=== PATIENT | female | born 1985 | race Caucasian/White ===

== ENCOUNTER 2017-09-22 02:23 | Emergency (ER) | payer SELFPAY ==
[~2017-09-22] VITALS: Ht 165.1 cm; Wt 62.3 kg
[~2017-09-22 02:23] MED LIST: ALBU1AER INH; ZITH250T PO
[2017-09-22 02:32] VITALS: BP 123/63; PULSE 77; RESP 18; TEMP 98.3; O2SAT 97
--- NOTE | 2017-09-22 02:42 | PD ---
HPI Chief Complaint: Edema Time Seen by Provider: 02:41 Travel History International Travel<30 days: No Contact w/Intl Traveler<30days: No Traveled to known affect area: No History of Present Illness HPI 32 year-old female presents to the emergency department for complaint of ring stuck on her right index finger. Patient states the band became bent in some fashion she is not sure how this happened. Patient has noted swelling of the right index finger 2 hours. The patient rates her pain 8/10 in intensity. PFSH Past Medical History Narrative Medical chronic pain syndrome, no surgery, tobacco use alcohol use, nursing notes reviewed Musculoskeletal: Yes (BACK, DISC DISEASE (BULGING DISC, L4-L5)) ?: Not : 2 : 1 Social History Alcohol Use: Yes (OCCASSIONALLY) Tobacco Use: Yes Substance Use: No Allergies-Medications (Allergen,Severity, Reaction): Coded Allergies: Sulfa (Sulfonamide Antibiotics) (Unverified Allergy, Severe, Anaphylaxis, 09/22/17) penicillin G (Unverified Allergy, Severe, Anaphylaxis, 09/22/17) Reported Meds & Prescriptions Reported Meds & Active Scripts Active No Active Prescriptions or Reported Medications Physical Exam Narrative Gen.: Well-developed well-nourished female in no acute distress no respiratory distress Extremity attention right index finger with readings in place and soft tissue swelling consistent with consistent strict of injury to the digit capillary refill is brisk and less than 2 seconds edema interferes with range of motion but is otherwise intact. Data Data Last Documented VS Vital Signs Date Time Temp Pulse Resp B/P (MAP) Pulse Ox O2 Delivery O2 Flow Rate FiO2 09/22/17 03:13 100 09/22/17 02:32 98.3 77 18 Orders Orders Ed Discharge Order (09/22/17 03:05) MDM Medical Decision Making Medical Screen Exam Complete: Yes Emergency Medical Condition: Yes Medical Record Reviewed: Yes Differential Diagnosis Finger ischemia, neurovascular injury, tendon injury, constrictive injury finger Narrative Course Ring removal Diagnosis Primary Impression: Constrictive jewelry of finger Qualified Codes: S60.449A - External constriction of unspecified finger, initial encounter; W49.04XA - Ring or other jewelry causing external constriction, initial encounter Referrals: Primary Care Physician call for appointment Patient Instructions: General Instructions Scripts No Active Prescriptions or Reported Meds Disposition: 01 DISCHARGE HOME Condition: Stable Denise Fink MD Sep 22, 2017 02:42
== END 2017-09-22 03:13 | disposition home or self-care (01) ==
LOC: PHEFT 02:23
DX: S60.440A External constriction of right index finger, initial encounter (principal); W49.04XA Ring or other jewelry causing external constriction, initial encounter
CPT/HCPCS: 99282

== ENCOUNTER 2018-01-06 01:26 | Emergency (ER) | payer SELFPAY ==
[2018-01-06] MEDS ORDERED: LIDOCAINE 1%/EPINEPHrine 1:100,000 SOLN 30 ML VIAL ONE (01:32)
[2018-01-06 01:35] VITALS: O2SAT 98
[2018-01-06] MEDS ORDERED: KETOROLAC TROMETHAMINE 30 MG/ML (IVP) VIAL ONE (01:45)
[2018-01-06] MEDS ORDERED: KETOROLAC TROMETHAMINE 30 MG/ML (IVP) VIAL IV PUSH ONE (01:45)
[2018-01-06] MEDS ORDERED: HYDROmorphone HCL PF 2 MG/ML VIAL IV PUSH ONE (01:45)
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
[2018-01-06 02:12] VITALS: BP 123/57; PULSE 116; RESP 16; O2SAT 99
[2018-01-06] MEDS ORDERED: LORazepam 2 MG/ML VIAL ONE (02:19)
[2018-01-06 02:30] VITALS: BP 109/58; PULSE 150; RESP 16; O2SAT 99
[2018-01-06] MEDS ORDERED: LORazepam 2 MG/ML VIAL IV PUSH ONE ×2 (02:30→03:00)
[2018-01-06] MEDS ORDERED: LIDOCAINE 1%/EPINEPHrine 1:100,000 SOLN 20 ML VIAL INFIL ONE (02:30)
[2018-01-06 03:00] VITALS: BP 105/58; PULSE 144; RESP 16; O2SAT 97
[2018-01-06] MEDS ORDERED: SODIUM CHLORIDE 0.9% FLUSH 10 ML FLUSH IV FLUSH PRN (04:00)
[2018-01-06 04:21] LABS: AUTOMATED NEUTROPHIL # 7.4 TH/MM3 (1.8-7.7); BASOPHIL # 0.1 TH/MM3 (0-0.2); BASOPHIL % 0.7 % (0.0-2.0); EOSINOPHIL # 0.3 TH/MM3 (0-0.4); EOSINOPHIL % 1.9 % (0.0-4.0); HEMATOCRIT 42.3 % (35.0-46.0); HEMOGLOBIN 14.8 GM/DL (11.6-15.3); LYMPH % 38.5 % (9.0-44.0); LYMPHOCYTE # 5.4 TH/MM3 (1.0-4.8); MEAN CELL VOLUME 96.2 FL (80.0-100.0); MEAN CORPUSCULAR HEMOGLOBIN 33.6 PG (27.0-34.0); MEAN PLATELET VOLUME 8.8 FL (7.0-11.0); MONO % 5.8 % (0.0-8.0); MONOCYTE # 0.8 TH/MM3 (0-0.9); NEUT % 53.1 % (16.0-70.0); PLATELET COUNT 233 TH/MM3 (150-450); RED CELL DISTRIBUTION WIDTH 13.1 % (11.6-17.2)
[2018-01-06 04:22] LABS: BASOPHILS 1 % (0-2); MONOCYTES 4 % (0-8); NEUTROPHIL # MANUAL DIFF 8.8 TH/MM3 (1.8-7.7); POLYS (SEG NEUTROPHILS) 63 % (16-70)
[2018-01-06 04:23] LABS: LYMPHOCYTES 31 % (9-44)
[2018-01-06 04:40] LABS: ALBUMIN 4.2 GM/DL (3.4-5.0); ALKALINE PHOSPHATASE 88 U/L (45-117); ALT (GPT) 23 U/L (10-53); AST (GOT) 17 U/L (15-37); BICARBONATE 19.6 MEQ/L (21.0-32.0); BLOOD UREA NITROGEN 11 MG/DL (7-18); CALCIUM 8.5 MG/DL (8.5-10.1); CHLORIDE 110 MEQ/L (98-107); CREATININE 0.83 MG/DL (0.50-1.00); GLOMERULAR FILTRATION RATE 81 ML/MIN (>89); GLUCOSE,RANDOM 105 MG/DL (74-106); SODIUM (NA) 143 MEQ/L (136-145); TOTAL BILIRUBIN ADULT 0.2 MG/DL (0.2-1.0); TOTAL PROTEIN 7.5 GM/DL (6.4-8.2)
[2018-01-06 04:42] LABS: ACETAMINOPHEN LESS THAN 2.0 MCG/ML (10.0-30.0)
[2018-01-06] MEDS: SODIUM CHLOR 0.9% 1000 ML INJ 1,000 ML IV SCH ×2 (05:39→06:32)
[2018-01-06 06:48] LABS: HEMATOCRIT 35.1 % (35.0-46.0); HEMOGLOBIN 12.1 GM/DL (11.6-15.3); MEAN CELL VOLUME 97.6 FL (80.0-100.0); MEAN CORPUSCULAR HEMOGLOBIN 33.5 PG (27.0-34.0); MEAN CORPUSCULAR HGB CONC 34.4 % (32.0-36.0); MEAN PLATELET VOLUME 9.1 FL (7.0-11.0); PLATELET COUNT 186 TH/MM3 (150-450); WHITE BLOOD COUNT 12.7 TH/MM3 (4.0-11.0)
[2018-01-06] MEDS ORDERED: TRAM50 PO (06:52)
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
--- NOTE | 2018-01-06 07:49 | EKG ---
Date Performed: 01/06/2018 Time Performed: 05:59:57 PTAGE: 32 years EKG: SINUS TACHYCARDIA ABNORMAL RHYTHM ECG NO PREVIOUS TRACING DOCTOR: Yifan Alvares Interpretating Date/Time 01/06/2018 07:49:15
[2018-01-06] MEDS ORDERED: CLINDAMYCIN 600 MG/NS PREMIX 50 ML IV ONE (08:30)
--- NOTE | 2018-01-06 09:08 | PD ---
Physical Exam Narrative Patient was seen over night by Dr. Castellon. After he had left, Dr. Moreno called to inquire about the patient. Patient had a laceration to the left side of her face that was repaired by Dr. Moreno overnight. He was concerned that she needed to receive antibiotics. Patient is awake and alert, in no distress at this time. Data Data Last Documented VS Vital Signs Date Time Temp Pulse Resp B/P (MAP) Pulse Ox O2 Delivery O2 Flow Rate FiO2 01/06/18 03:00 144 16 105/58 (74) 97 Room Air 01/06/18 01:35 21 Orders Orders Lidocai-Epi 1%-1:100,000 Inj (Xylocaine- (01/06/18 01:32) Ketorolac Inj (Toradol Inj) (01/06/18 01:45) Ketorolac Inj (Toradol Inj) (01/06/18 01:45) I-Stat Profile (01/06/18 01:59) Lorazepam Inj (Ativan Inj) (01/06/18 02:30) Lorazepam Inj (Ativan Inj) (01/06/18 02:19) Lidocai-Epi 1%-1:100,000 Inj (Xylocaine- (01/06/18 02:30) Lorazepam Inj (Ativan Inj) (01/06/18 03:00) Electrocardiogram (01/06/18 03:57) Complete Blood Count With Diff (01/06/18 03:57) Comprehensive Metabolic Panel (01/06/18 03:57) Thyroid Stimulating Hormone (01/06/18 03:57) Urinalysis - C+S If Indicated (01/06/18 03:57) Blood Glucose (01/06/18 03:57) Ecg Monitoring (01/06/18 03:57) Iv Access Insert/Monitor (01/06/18 03:57) Oximetry (01/06/18 03:57) Sodium Chloride 0.9% Flush (Ns Flush) (01/06/18 04:00) Sodium Chlor 0.9% 1000 Ml Inj (Ns 1000 M (01/06/18 03:57) Drug Screen, Random Urine (01/06/18 03:57) Alcohol (Ethanol) (01/06/18 03:57) Tylenol (Acetaminophen) (01/06/18 03:57) Salicylates (Aspirin) (01/06/18 03:57) Beta Hcg (Quant/Titer) (01/06/18 03:57) Cbc No Diff, Includes Plts (01/06/18 05:48) Ed Discharge Order (01/06/18 06:53) Trauma Office Use Only (01/06/18 07:23) Clindamycin 600 Mg/Ns Premix (Cleocin 60 (01/06/18 08:30) Labs Laboratory Tests Test 01/06/18 01:59 01/06/18 06:00 White Blood Count 14.0 TH/MM3 12.7 TH/MM3 Red Blood Count 4.40 MIL/MM3 3.60 MIL/MM3 Hemoglobin 14.8 GM/DL 12.1 GM/DL Bedside Hemoglobin 14.6 G/DL Hematocrit 42.3 % 35.1 % Bedside Hematocrit 43.0 % Mean Corpuscular Volume 96.2 FL 97.6 FL Mean Corpuscular Hemoglobin 33.6 PG 33.5 PG Mean Corpuscular Hemoglobin Concent 35.0 % 34.4 % Red Cell Distribution Width 13.1 % 13.0 % Platelet Count 233 TH/MM3 186 TH/MM3 Mean Platelet Volume 8.8 FL 9.1 FL Neutrophils (%) (Auto) 53.1 % Lymphocytes (%) (Auto) 38.5 % Monocytes (%) (Auto) 5.8 % Eosinophils (%) (Auto) 1.9 % Basophils (%) (Auto) 0.7 % Neutrophils # (Auto) 7.4 TH/MM3 Lymphocytes # (Auto) 5.4 TH/MM3 Monocytes # (Auto) 0.8 TH/MM3 Eosinophils # (Auto) 0.3 TH/MM3 Basophils # (Auto) 0.1 TH/MM3 CBC Comment AUTO DIFF Differential Total Cells Counted 100 Neutrophils % (Manual) 63 % Lymphocytes % 31 % Monocytes % 4 % Eosinophils % 1 % Basophils % 1 % Neutrophils # (Manual) 8.8 TH/MM3 Differential Comment FINAL DIFF MANUAL Atypical Lymphocytes % Platelet Estimate NORMAL Platelet Morphology Comment NORMAL Red Cell Morphology Comment NORMAL Bedside Sodium 145 MMOL/L Blood Urea Nitrogen 11 MG/DL Creatinine 0.83 MG/DL Random Glucose 105 MG/DL Total Protein 7.5 GM/DL Albumin 4.2 GM/DL Calcium Level 8.5 MG/DL Alkaline Phosphatase 88 U/L Aspartate Amino Transf (AST/SGOT) 17 U/L Alanine Aminotransferase (ALT/SGPT) 23 U/L Total Bilirubin 0.2 MG/DL Sodium Level 143 MEQ/L Potassium Level 3.3 MEQ/L Chloride Level 110 MEQ/L Carbon Dioxide Level 19.6 MEQ/L Bedside Potassium 3.4 MMOL/L Bedside Chloride 107 MMOL/L Anion Gap 13 MEQ/L Bedside Blood Urea Nitrogen 11 MG/DL Bedside Creatinine 0.9 MG/DL Estimat Glomerular Filtration Rate 81 ML/MIN Bedside Glucose 109 MG/DL Thyroid Stimulating Hormone 3rd Gen 3.150 uIU/ML Human Chorionic Gonadotropin, Quant LESS THAN 1 MIU/ML Salicylates Level 2.7 MG/DL Acetaminophen Level LESS THAN 2.0 MCG/ML Ethyl Alcohol Level 223 MG/DL MDM Supervised Visit with ANA: No Narrative Course She was given a dose of clindamycin here and discharged with a prescription. Advised to follow up with Dr. Moreno and to return at any time for any worsening symptoms. Diagnosis Primary Impression: Facial laceration Qualified Codes: S01.81XA - Laceration without foreign body of other part of head, initial encounter Referrals: Onur Moreno DMD Patient Instructions: General Instructions, Facial Laceration (ED) Departure Forms: Tests/Procedures Additional Instruction: Follow-up with Dr. Moreno. Instructions in wound care as per Dr. Moreno. Ultram 50 mg every 8 hours as needed for pain return promptly for worsening Scripts Tramadol (Tramadol) 50 Mg Tab 50 MG PO Q6H Y for PAIN, #12 TAB 0 Refills Prov: Donna Montenegro MD 01/06/18 Clindamycin (Clindamycin) 300 Mg Cap 600 MG PO Q8H for Infection for 7 Days, #42 CAP 0 Refills Prov: Donna Montenegro MD 01/06/18 Disposition: DISCHARGE HOME Condition: Stable Donna Montenegro MD Jan 06, 2018 09:08
[2018-01-06] MEDS ORDERED: CLIN300C5 PO (09:19)
[2018-01-06] MEDS ORDERED: TRAM50TA PO (09:19)
[2018-01-06 11:46] VITALS: BP 142/86
== END 2018-01-06 11:46 | disposition home or self-care (01) ==
LOC: NEPI 01:26 → NEPE 11:46
DX: S01.81XA Laceration without foreign body of other part of head, initial encounter (principal); S01.511A Laceration without foreign body of lip, initial encounter; S01.112A Laceration without foreign body of left eyelid and periocular area, initial encounter; X99.1XXA Assault by knife, initial encounter; R00.0 Tachycardia, unspecified; F17.210 Nicotine dependence, cigarettes, uncomplicated
CPT/HCPCS: 13152; 13153; 40654; 80053; 80307; 84443; 84702; 85007; 85027; 93005; 96361; 96374; 96375; 99285; J2060; J7030; 80048; J1885

== ENCOUNTER 2018-01-26 12:22 | Inpatient (IN) | payer OTHER ==
[~2018-01-26] VITALS: Ht 165.1 cm; Wt 65.0 kg
[~2018-01-26 12:22] MED LIST changes: -ALBU1AER INH; +CLIN300C5 PO; +DEXAMETHASONE SOD PHOS 4 MG/ML VIAL IV ONE; +LIDOCAINE HCL 1% PF 5 ML SYRINGE OTHER ONE; +ONDANSETRON HCL 4 MG/2 ML VIAL IV ONE; +PROPOFOL 200 MG/20 ML AMP IV ONE; +TRAM50TA PO; -ZITH250T PO
[2018-01-26 12:36] VITALS: BP 139/67; PULSE 89; RESP 18; O2SAT 100
[2018-01-26] MEDS ORDERED: SODIUM CHLOR 0.9% 1000 ML INJ 1,000 ML IV SCH (12:40)
[2018-01-26] MEDS ORDERED: SODIUM CHLORIDE 0.9% FLUSH 10 ML FLUSH IV FLUSH PRN ×2 (12:45→15:45)
[2018-01-26] MEDS ORDERED: ONDANSETRON HCL 4 MG/2 ML VIAL IVP ONE (12:45)
[2018-01-26] MEDS ORDERED: PROPOFOL 200 MG/20 ML AMP IV ONE (12:45)
[2018-01-26 12:47] VITALS: RESP 18; O2SAT 100
[2018-01-26] MEDS ORDERED: cefTRIAXone INJ 1,000 MG in SODIUM CHLORIDE 0.9% INJ 100 ML IV ONE (13:00)
[2018-01-26] MEDS ORDERED: GENTAMICIN 80 MG PREMIX 100 ML IV ONE (13:00)
[2018-01-26 13:06] LABS: AUTOMATED NEUTROPHIL # 5.4 TH/MM3 (1.8-7.7); BASOPHIL # 0.1 TH/MM3 (0-0.2); BASOPHIL % 0.7 % (0.0-2.0); EOSINOPHIL # 0.2 TH/MM3 (0-0.4); EOSINOPHIL % 2.2 % (0.0-4.0); HEMOGLOBIN 14.8 GM/DL (11.6-15.3); LYMPHOCYTE # 1.7 TH/MM3 (1.0-4.8); MEAN CORPUSCULAR HEMOGLOBIN 35.5 PG (27.0-34.0); MONO % 6.4 % (0.0-8.0); MONOCYTE # 0.5 TH/MM3 (0-0.9); NEUT % 68.7 % (16.0-70.0); PLATELET COUNT 228 TH/MM3 (150-450); RED BLOOD COUNT 4.18 MIL/MM3 (4.00-5.30); RED CELL DISTRIBUTION WIDTH 13.4 % (11.6-17.2); WHITE BLOOD COUNT 7.9 TH/MM3 (4.0-11.0)
[2018-01-26 13:09] LABS: MEAN CORPUSCULAR HGB CONC 36.2 % (32.0-36.0)
[2018-01-26] MEDS ORDERED: IBUP200T47 PO (13:11)
[2018-01-26] MEDS ORDERED: VITA100T65 PO (13:11)
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
[2018-01-26 13:26] LABS: ALBUMIN 4.3 GM/DL (3.4-5.0); ALT (GPT) 24 U/L (10-53); AST (GOT) 19 U/L (15-37); BLOOD UREA NITROGEN 11 MG/DL (7-18); CALCIUM 8.9 MG/DL (8.5-10.1); CHLORIDE 107 MEQ/L (98-107); CREATININE 0.82 MG/DL (0.50-1.00); GLOMERULAR FILTRATION RATE 82 ML/MIN (>89); GLUCOSE,RANDOM 105 MG/DL (74-106); SODIUM (NA) 139 MEQ/L (136-145)
[2018-01-26 13:29] LABS: ALKALINE PHOSPHATASE 79 U/L (45-117); TOTAL BILIRUBIN ADULT 0.9 MG/DL (0.2-1.0); TOTAL PROTEIN 7.6 GM/DL (6.4-8.2)
[2018-01-26] MEDS ORDERED: HYDROmorphone HCL PF 2 MG/ML VIAL IV PUSH ONE (13:30)
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
[2018-01-26 13:57] LABS: BILIRUBIN, URINE NEG (NEG); BLOOD, URINE NEG (NEG); GLUCOSE,URINE NEG (NEG); KETONE, URINE NEG (NEG); MUCUS URINE FEW /lpf (OCC); NITRITE,URINE NEG (NEG); SQUAMOUS EPITHELIAL CELL URINE <1 /hpf (0-5); URINE COLOR YELLOW (YELLW/STRAW); URINE LEUKOCYTE ESTERASE NEG (NEG)
[2018-01-26 14:00] VITALS: O2SAT 100
[2018-01-26 14:31] VITALS: BP 116/55; PULSE 75; RESP 18; O2SAT 100
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
--- NOTE | 2018-01-26 15:13 | RADRPT ---
EXAM DATE/TIME: 01/26/2018 14:37 [facility] COMPARISON: None. INDICATIONS : <<Post reduction right ankle.>> MEDICAL HISTORY : None. SURGICAL HISTORY : None. ENCOUNTER: Initial ACUITY: 1 day PAIN SCORE: 10/10 LOCATION: Right ankle. FINDINGS: On the postprocedure views the talus remains dislocated laterally with multiple hindfoot fractures. T alus is also abnormally rotated. CONCLUSION: 1. Persistent dislocation of the talus laterally at the ankle joint with multiple fractures. Isra Lopez MD on January 26, 2018 at 15:10 Board Certified Radiologist. This report was verified electronically.
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
--- NOTE | 2018-01-26 15:32 | RADRPT ---
EXAM DATE/TIME: 01/26/2018 14:50 [facility] COMPARISON: None. INDICATIONS : <<Right ankle pain, post reduction.>> RADIATION DOSE: <<7.29>> CTDIvol (mGy) MEDICAL HISTORY : None SURGICAL HISTORY : None. ENCOUNTER: Initial ACUITY: 1 day PAIN SCALE: 10/10 LOCATION: Right ankle TECHNIQUE: Volumetric scanning and 3D reconstructions of the ankle were performed. Using automated exposure con trol and adjustment of the mA and/or kV according to patient size, radiation dose was kept as low as reasonably achievable to obtain optimal diagnostic quality images. DICOM format image data is availa ble electronically for review and comparison. FINDINGS: There is a comminuted fracture through the talar neck. The remainder of the talus is dislocated later ally and rotated over 90 toward the lateral aspect of the ankle. There is associated comminuted frac ture through the inferior portion of the lateral malleolus and avulsion fractures of the medial malle olus. There is air within the ankle joint. Numerous bone fragments are present distal to the tibial p yemi. There is air in the talonavicular joint and calcaneocuboid joint with mild subluxation at the calcane ocuboid joint. There is minimal lateral subluxation at the fourth tarsometatarsal joint. CONCLUSION: 1. Comminuted fracture of the talar neck with dislocation of the remainder of the talus laterally. Th e talar dome is also abnormally rotated to a position lateral to the lateral malleolus. Numerous bone fragments are present distal to the tibial plafond. Also comminuted fractures through the inferior a spect of the lateral and medial malleoli. 2. Air in the talonavicular and calcaneocuboid joints with mild subluxations as above. Isra Lopez MD on January 26, 2018 at 15:24 Board Certified Radiologist. This report was verified electronically.
[2018-01-26] MEDS ORDERED: SENNOSIDES 8.6 MG TAB PO PRN (15:45)
[2018-01-26] MEDS ORDERED: oxyCODONE/ACETAMINOPHEN 5 MG/325 MG TAB PO PRN (15:45)
[2018-01-26] MEDS ORDERED: ONDANSETRON HCL 4 MG/2 ML VIAL IVP PRN (15:45)
[2018-01-26] MEDS ORDERED: MAGNESIUM HYDROXIDE SUSP 30 ML CUP PO PRN ×2 (15:45→18:00)
[2018-01-26] MEDS ORDERED: ACETAMINOPHEN/HYDROcodone 325 MG/10 MG TAB PO PRN (15:45)
[2018-01-26] MEDS ORDERED: ACETAMINOPHEN 325 MG TAB PO PRN ×2 (15:45)
[2018-01-26] MEDS ORDERED: LACTULOSE SYRUP 20 GM/30 ML CUP PO PRN (15:45)
[2018-01-26] MEDS ORDERED: BISACODYL 10 MG SUPP RECTAL PRN (15:45)
[2018-01-26] MEDS ORDERED: NALOXONE HCL 0.4 MG/ML AMP IV PUSH PRN ×3 (15:45→18:00)
[2018-01-26] MEDS: MORPHINE SULFATE 2 MG/ML INJ IV PUSH PRN ×2 (17:12→20:51)
[2018-01-26] MEDS ORDERED: SODIUM CHLORID 0.9% 500 ML IV PRN (17:15)
[2018-01-26] MEDS ORDERED: INSULIN HUMAN REGULAR 1,000 UNITS/10 ML VIAL SQ PRN (17:15)
[2018-01-26] MEDS ORDERED: METOPROLOL TARTRATE 25 MG TAB PO PRN (17:15)
[2018-01-26] MEDS ORDERED: LACTATED RINGER'S 1000 ML IV PRN (17:15)
[2018-01-26] MEDS ORDERED: POVIDONE IODINE 5% (ANTISEPSIS KIT) 4 APPLICATIONS EACH NARE PRN (17:15)
[2018-01-26] MEDS ORDERED: CHLORHEXIDINE GLUCONATE 2 % 1 PACK (2 CLOTHS) TOPICAL PRN (17:15)
[2018-01-26] MEDS ORDERED: ceFAZolin 2 GM PREMIX 50 ML ONE (17:38)
[2018-01-26] MEDS ORDERED: VANCOMYCIN HCL 1000 MG VIAL ONE (17:38)
[2018-01-26] MEDS ORDERED: DEXT 5%-NACL 0.45% 1000 ML INJ 1,000 ML IV SCH (17:50)
[2018-01-26] MEDS ORDERED: HYDR-3288 PO (17:54)
[2018-01-26] MEDS ORDERED: MORPHINE SULFATE 4 MG/ML INJ IV PUSH PRN (18:00)
[2018-01-26] MEDS ORDERED: ACETAMINOPHEN/HYDROcodone 325 MG/7.5 MG TAB PO PRN (18:00)
[2018-01-26] MEDS ORDERED: MISCELLANEOUS NURSING INFORMATION XX PRN (18:00)
[2018-01-26] MEDS ORDERED: MISCELLANEOUS PHARMACY INFORMATION XX ONE (18:00)
[2018-01-26] MEDS ORDERED: diphenhydrAMINE HCL 25 MG CAP PO PRN (18:00)
[2018-01-26] MEDS ORDERED: Post-op Orders (for Pharmacy) XX ONE (18:00)
[2018-01-26] MEDS ORDERED: GENTAMICIN SULFATE 80 MG/2 ML VIAL ONE (18:07)
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
[2018-01-26] MEDS ORDERED: ACETAMINOPHEN 1000 MG/100 ML 100 ML IV ONE (18:15)
[2018-01-26] MEDS ORDERED: MIDAZOLAM HCL 2 MG/2 ML VIAL ONE (19:00)
[2018-01-26] MEDS ORDERED: DO NOT ADM ANY ANTICOAGULANT DRUGS PRN (19:16)
[2018-01-26] MEDS ORDERED: *morphine SULFATE 10 MG/ML PERIprocedure ONLY ONE ×3 (19:23→19:52)
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
--- NOTE | 2018-01-26 20:40 | RADRPT ---
EXAM DATE/TIME: 01/26/2018 18:34 [facility] COMPARISON: ANKLE RIGHT COMPLETE ([id number]), January 26, 2018, 14:37. INDICATIONS : ORIF of the right talus fracture with external fixator placement. MEDICAL HISTORY : Smoker. SURGICAL HISTORY : None. ENCOUNTER: Subsequent ACUITY: 1 day PAIN SCORE: 10/10 LOCATION: Right ankle. FINDINGS: External fixator present. Interim screw fixation of the talus fracture, alignment appears near-anatom ic. Comminuted distal fibula fracture again noted. CONCLUSION: Interim screw fixation of right talus fracture in near-anatomic alignment. External fixation of the a nkle present. Jovi Hernandez MD on January 26, 2018 at 20:37 Board Certified Radiologist. This report was verified electronically.
[2018-01-26] MEDS ORDERED: VANCOMYCIN INJ 1,000 MG in SODIUM CHLOR 0.9% 250 ML INJ 250 ML IV SCH (21:00)
[2018-01-26] MEDS ORDERED: DOCUSATE SODIUM 50 MG/SENNA 8.6 MG TAB PO SCH ×2 (21:00)
[2018-01-26 21:30] VITALS: BP 135/64; PULSE 102; RESP 16; TEMP 98.6; O2SAT 97
[2018-01-26] MEDS: ONDANSETRON HCL 4 MG/2 ML VIAL IVP PRN (22:17)
[2018-01-26] MEDS: SODIUM CHLORIDE 0.9% FLUSH 10 ML FLUSH IV FLUSH SCH (22:17)
[2018-01-26] MEDS: ACETAMINOPHEN/HYDROcodone 325 MG/7.5 MG TAB PO PRN (22:17)
[2018-01-27] VITALS: BP 125/67; PULSE 82; RESP 17; TEMP 99.5; O2SAT 97
[2018-01-27] MEDS: MORPHINE SULFATE 2 MG/ML INJ IV PUSH PRN ×2 (00:15→04:35)
[2018-01-27] MEDS: ACETAMINOPHEN/HYDROcodone 325 MG/7.5 MG TAB PO PRN ×3 (02:37→14:22)
[2018-01-27] MEDS: ONDANSETRON HCL 4 MG/2 ML VIAL IVP PRN (02:56)
[2018-01-27 04:30] VITALS: BP 120/60; PULSE 78; RESP 17; TEMP 98.7; O2SAT 97
[2018-01-27] MEDS ORDERED: VANCOMYCIN INJ 1,000 MG in SODIUM CHLOR 0.9% 250 ML INJ 250 ML IV SCH (06:00)
[2018-01-27 08:27] VITALS: BP 118/63; PULSE 65; RESP 20; TEMP 98.2; O2SAT 98
[2018-01-27] MEDS ORDERED: CRUTMIS35 (08:27)
[2018-01-27] MEDS ORDERED: WHEEMIS3 (08:27)
--- NOTE | 2018-01-27 08:30 | PD.ORT.PN ---
Subjective Post Op Day #: 1 Subjective Remarks painful. Objective Vitals Vital Signs Date Time Temp Pulse Resp B/P (MAP) Pulse Ox O2 Delivery O2 Flow Rate FiO2 01/27/18 04:30 98.7 78 17 120/60 (80) 97 01/27/18 00:00 99.5 82 17 125/67 (86) 97 01/26/18 21:30 98.6 102 16 135/64 (87) 97 01/26/18 21:00 108 23 138/62 (87) 98 Room Air 01/26/18 20:45 94 14 134/68 (90) 98 Room Air 01/26/18 20:30 89 14 127/68 (87) 97 Room Air 01/26/18 20:15 84 18 135/67 (89) 97 Room Air 01/26/18 20:00 83 15 124/65 (84) 95 Room Air 01/26/18 19:45 83 16 130/65 (86) 99 Room Air 01/26/18 19:30 80 14 128/63 (84) 100 Nasal Cannula 2 01/26/18 19:15 91 15 132/73 (92) 100 Nasal Cannula 2 01/26/18 19:14 98.4 104 18 140/58 (85) 100 Nasal Cannula 2 01/26/18 14:31 75 18 116/55 (75) 100 Nasal Cannula 2.00 01/26/18 14:00 100 23.00 01/26/18 12:47 18 100 Room Air 01/26/18 12:41 91 18 100 Room Air 01/26/18 12:36 89 18 139/67 (91) 100 Room Air I/O 01/26/18 01/26/18 01/26/18 01/27/18 01/27/18 01/27/18 07:00 15:00 23:00 07:00 15:00 23:00 Intake Total 850 ml Output Total 310 ml Balance 540 ml Intake Oral 150 ml Other 700 ml Output Urine Total 300 ml Estimated Blood Loss 10 ml Result Diagram: 01/26/18 1245 01/26/18 1245 Other Results Laboratory Tests Test 01/26/18 12:45 Prothromb Time International Ratio 1.0 RATIO Prothrombin Time 10.0 SEC (9.8-11.6) Imaging Last 24 hours Impressions Ankle X-Ray 01/26/18 1414 Signed Impressions: Service Date/Time: Friday, January 26, 2018 14:37 - CONCLUSION: 1. Persistent dislocation of the talus laterally at the ankle joint with multiple fractures. Isra Lopez MD Head CT 01/26/18 1240 Signed Impressions: Service Date/Time: Friday, January 26, 2018 14:54 - CONCLUSION: No acute disease. Ron Allison MD Cervical Spine CT 01/26/18 1240 Signed Impressions: Service Date/Time: Friday, January 26, 2018 14:54 - CONCLUSION: 1. No acute fracture or prevertebral soft tissue swelling. 2. Mild scoliosis of the cervical spine. Ron Allison MD Ankle X-Ray 01/26/18 1240 Signed Impressions: Service Date/Time: Friday, January 26, 2018 13:01 - CONCLUSION: 1. Complete dislocation of the tibiotalar joint with rotation of the talus. Study would suggest a talar dome fracture. Dedicated views of the foot and ankle are warranted for more definitive assessment. This is only partially visualized. Josep Shankar MD Objective Remarks in bed, nad, family in room ex-fix in place dressing with dried blood. no sign of current drainage. no erythema neg homans nvi, sensation intact cap refill present Assessment & Plan Ortho Post Op Day #: 1 Problem List: Assessment and Plan s/p I&D R ankle, ORIF of right talus fracture/dislocation NWB pin care BID pain control abx ortho stable - cleared for d/c home when pain under control will need crutches and/or wheelchair f/up dr. jackson 2 week Tung Dwason Jan 27, 2018 08:30
[2018-01-27] MEDS ORDERED: CEPH-460 PO (08:32)
[2018-01-27] MEDS: SODIUM CHLORIDE 0.9% FLUSH 10 ML FLUSH IV FLUSH SCH (09:00)
[2018-01-27] MEDS ORDERED: MULTIVITAMINS/MINERALS THERAPEUTIC TAB PO SCH (09:00)
[2018-01-27 10:56] LABS: HEMATOCRIT 33.5 % (35.0-46.0); HEMOGLOBIN 11.5 GM/DL (11.6-15.3); MEAN CELL VOLUME 98.2 FL (80.0-100.0); MEAN CORPUSCULAR HEMOGLOBIN 33.6 PG (27.0-34.0); MEAN CORPUSCULAR HGB CONC 34.2 % (32.0-36.0); MEAN PLATELET VOLUME 9.4 FL (7.0-11.0); PLATELET COUNT 185 TH/MM3 (150-450); RED BLOOD COUNT 3.41 MIL/MM3 (4.00-5.30); RED CELL DISTRIBUTION WIDTH 13.3 % (11.6-17.2); WHITE BLOOD COUNT 14.3 TH/MM3 (4.0-11.0)
[2018-01-27 11:21] LABS: BICARBONATE 23.9 MEQ/L (21.0-32.0); CALCIUM 8.2 MG/DL (8.5-10.1); CREATININE 0.76 MG/DL (0.50-1.00)
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
[2018-01-27] MEDS ORDERED: ENOXAPARIN SODIUM 30 MG/0.3 ML SYRINGE SQ SCH (18:30)
== END 2018-01-27 14:27 | disposition home or self-care (01) | DRG 493 ==
LOC: NEPE 12:22 → NEDA 15:31 → OBSVTOIN 15:40 → EEVIPCON 15:40 → H6YA 21:09
PROVIDERS: ADMIT Hospitalist; ATTEND Hospitalist
PROC: 0QSL05Z Reposition Right Tarsal with External Fixation Device, Open Approach (ICD-10-PCS; 2018-01-26)
PROC: 0QBG0ZZ Excision of Right Tibia, Open Approach (ICD-10-PCS; 2018-01-26)
PROC: 0QSG05Z Reposition Right Tibia with External Fixation Device, Open Approach (ICD-10-PCS; principal; 2018-01-26 17:35)
DX: S82.843A Displaced bimalleolar fracture of unspecified lower leg, initial encounter for closed fracture (principal); S92.10 Unspecified fracture of talus; F17.210 Nicotine dependence, cigarettes, uncomplicated; V43.52XA Car driver injured in collision with other type car in traffic accident, initial encounter; Y92.410 Unspecified street and highway as the place of occurrence of the external cause
CPT/HCPCS: 27846; 70450; 72125; 73600; 73610; 73700; 76000; 76376; 80048; 80053; 81001; 84703; 85025; 85027; 85610; 85730; 94150; 96361; 96365; 96366; 96375; C1713; C1769; E0113; J0131; J0690; J0696; J1100; J1170; J1580; J2250; J2270; J2405; J3010; J3370; J7030; J7050

== ENCOUNTER 2018-02-01 21:34 | Emergency (ER) | payer SELFPAY ==
[~2018-02-01] VITALS: Ht 165.1 cm; Wt 65.0 kg
[~2018-02-01 21:34] MED LIST changes: +CEPH-460 PO; -CLIN300C5 PO; +CRUTMIS35; -DEXAMETHASONE SOD PHOS 4 MG/ML VIAL IV ONE; +HYDR-3288 PO; +IBUP200T47 PO; -LIDOCAINE HCL 1% PF 5 ML SYRINGE OTHER ONE; -ONDANSETRON HCL 4 MG/2 ML VIAL IV ONE; -PROPOFOL 200 MG/20 ML AMP IV ONE; -TRAM50TA PO; +VITA100T65 PO; +WHEEMIS3
[2018-02-01 22:41] VITALS: BP 116/56; PULSE 85; RESP 16; TEMP 98.4; O2SAT 99
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
== END 2018-02-02 02:09 | disposition home or self-care (01) ==
LOC: NEPE 21:34
DX: Z48.01 Encounter for change or removal of surgical wound dressing (principal); F17.200 Nicotine dependence, unspecified, uncomplicated; Z79.899 Other long term (current) drug therapy; Z88.2 Allergy status to sulfonamides; Z88.0 Allergy status to penicillin
CPT/HCPCS: 99281

== ENCOUNTER → 2018-03-01 | Day surgery (SDC) | payer OTHER ==
[~2018-03-01] VITALS: Ht 165.1 cm; Wt 66.0 kg
[~2018-03-01] MED LIST changes: +*morphine SULFATE 4 MG/ML PERIprocedure ONLY ONE; +ACETAMINOPHEN 1000 MG/100 ML 100 ML IV ONE; +ACETAMINOPHEN/HYDROcodone 325 MG/7.5 MG TAB PO PRN; +BUPIVACAINE HCL PF 0.5% 30 ML VIAL ONE; +CHLORHEXIDINE GLUCONATE 2 % 1 PACK (2 CLOTHS) TOPICAL PRN; +CHLORHEXIDINE GLUCONATE 4% SOLN 120 ML BTL TOPICAL SCH; +CIPR-9 PO; +DEXAMETHASONE SOD PHOS 4 MG/ML VIAL IV ONE; +DO NOT ADM ANY ANTICOAGULANT DRUGS PRN; +GENTAMICIN SULFATE 80 MG/2 ML VIAL ONE; +KETOROLAC TROMETHAMINE 30 MG/ML (IVP) VIAL IV PUSH ONE; +LACTATED RINGER'S 1000 ML IV PRN; +LIDOCAINE HCL 1% PF 5 ML SYRINGE OTHER ONE; +METOPROLOL TARTRATE 25 MG TAB PO PRN; +MIDAZOLAM HCL 2 MG/2 ML VIAL ONE; +MORPHINE SULFATE 4 MG/ML INJ IV PRN; +ONDANSETRON HCL 4 MG/2 ML VIAL IV PUSH ONE; +ONDANSETRON HCL 4 MG/2 ML VIAL IV PUSH PRN; +POVIDONE IODINE 5% (ANTISEPSIS KIT) 4 APPLICATIONS EACH NARE PRN; +POVIDONE IODINE 7.5% SCRUB 118 ML BOTTLE TOPICAL SCH; +PROPOFOL 200 MG/20 ML AMP IV ONE; +SODIUM CHLORID 0.9% 500 ML IV PRN; +ceFAZolin 2 GM PREMIX 50 ML IV SCH
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
[2018-03-01 13:40] VITALS: BP 121/60; PULSE 89; RESP 16; TEMP 98.6; O2SAT 99
== END | disposition home or self-care (01) ==
LOC: HSDC 08:42
PROVIDERS: ATTEND Orthopaedic Surgery Sports Medicine
DX: S92.101D Unspecified fracture of right talus, subsequent encounter for fracture with routine healing (principal)
CPT/HCPCS: 01462; 20694; 86850; 86900; 86901; J0131; J0690; J1100; J1885; J2250; J2270; J2405; J3010; J7120; J1580

== ENCOUNTER 2018-04-26 11:42 | Emergency (ER) | payer MEDICAID ==
[~2018-04-26 11:42] MED LIST changes: -*morphine SULFATE 4 MG/ML PERIprocedure ONLY ONE; -ACETAMINOPHEN 1000 MG/100 ML 100 ML IV ONE; -ACETAMINOPHEN/HYDROcodone 325 MG/7.5 MG TAB PO PRN; -BUPIVACAINE HCL PF 0.5% 30 ML VIAL ONE; -CEPH-460 PO; -CHLORHEXIDINE GLUCONATE 2 % 1 PACK (2 CLOTHS) TOPICAL PRN; -CHLORHEXIDINE GLUCONATE 4% SOLN 120 ML BTL TOPICAL SCH; -DEXAMETHASONE SOD PHOS 4 MG/ML VIAL IV ONE; -DO NOT ADM ANY ANTICOAGULANT DRUGS PRN; -GENTAMICIN SULFATE 80 MG/2 ML VIAL ONE; -KETOROLAC TROMETHAMINE 30 MG/ML (IVP) VIAL IV PUSH ONE; -LACTATED RINGER'S 1000 ML IV PRN; -LIDOCAINE HCL 1% PF 5 ML SYRINGE OTHER ONE; -METOPROLOL TARTRATE 25 MG TAB PO PRN; -MIDAZOLAM HCL 2 MG/2 ML VIAL ONE; -MORPHINE SULFATE 4 MG/ML INJ IV PRN; -ONDANSETRON HCL 4 MG/2 ML VIAL IV PUSH ONE; -ONDANSETRON HCL 4 MG/2 ML VIAL IV PUSH PRN; -POVIDONE IODINE 5% (ANTISEPSIS KIT) 4 APPLICATIONS EACH NARE PRN; -POVIDONE IODINE 7.5% SCRUB 118 ML BOTTLE TOPICAL SCH; -PROPOFOL 200 MG/20 ML AMP IV ONE; -SODIUM CHLORID 0.9% 500 ML IV PRN; -ceFAZolin 2 GM PREMIX 50 ML IV SCH
[2018-04-26 12:01] VITALS: BP 104/68; PULSE 109; RESP 18; TEMP 98.4; O2SAT 100
[2018-04-26 12:55] LABS: BACTERIA, URINE MOD /hpf; BILIRUBIN, URINE NEG (NEG); BLOOD, URINE MOD (NEG); GLUCOSE,URINE NEG (NEG); HYALINE CAST, URINE 59 /lpf (RARE); KETONE, URINE NEG (NEG); MUCUS URINE MANY /lpf (OCC); NITRITE,URINE NEG (NEG); SQUAMOUS EPITHELIAL CELL URINE 20 /hpf (0-5); URINE LEUKOCYTE ESTERASE LARGE (NEG); WHITE BLOOD CELL CLUMPS MANY
[2018-04-26 12:56] LABS: URINE COLOR YELLOW (YELLW/STRAW)
[2018-04-26] MEDS ORDERED: MACR100C2 PO (13:20)
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
[2018-04-26] MEDS ORDERED: NITROFURANTOIN MONOHYD MACROCR 100 MG CAP PO ONE (13:30)
[2018-04-26] MEDS ORDERED: ZOFR4TAB3 SL (13:49)
== END 2018-04-26 13:50 | disposition home or self-care (01) ==
LOC: NEPD 11:42
DX: N30.91 Cystitis, unspecified with hematuria (principal); F17.210 Nicotine dependence, cigarettes, uncomplicated
CPT/HCPCS: 81001; 84703; 87077; 87086; 87186; 99283

== ENCOUNTER 2018-05-01 00:18 | Inpatient (IN) | payer SELFPAY ==
[2018-05-01] VITALS (7 sets, daily range): BP systolic 103–128; BP diastolic 55–60; PULSE 70–111; RESP 16–20; TEMP 98.2–100.3; O2SAT 96–99
[~2018-05-01 00:18] MED LIST changes: +MACR100C2 PO; +ZOFR4TAB3 SL
[2018-05-01] MEDS ORDERED: SODIUM CHLOR 0.9% 1000 ML INJ 1,000 ML IV SCH (01:10)
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
[2018-05-01] MEDS ORDERED: SODIUM CHLORIDE 0.9% FLUSH 10 ML FLUSH IV FLUSH PRN ×2 (01:15→04:00)
[2018-05-01 01:52] LABS: AUTOMATED NEUTROPHIL # 10.4 TH/MM3 (1.8-7.7); BASOPHIL # 0.2 TH/MM3 (0-0.2); BASOPHIL % 1.3 % (0.0-2.0); EOSINOPHIL % 0.2 % (0.0-4.0); HEMATOCRIT 34.9 % (35.0-46.0); HEMOGLOBIN 12.1 GM/DL (11.6-15.3); LYMPH % 8.5 % (9.0-44.0); LYMPHOCYTE # 1.1 TH/MM3 (1.0-4.8); MEAN CELL VOLUME 91.5 FL (80.0-100.0); MEAN CORPUSCULAR HEMOGLOBIN 31.7 PG (27.0-34.0); MEAN CORPUSCULAR HGB CONC 34.7 % (32.0-36.0); MEAN PLATELET VOLUME 8.8 FL (7.0-11.0); MONO % 6.5 % (0.0-8.0); MONOCYTE # 0.8 TH/MM3 (0-0.9); NEUT % 83.5 % (16.0-70.0); PLATELET COUNT 253 TH/MM3 (150-450); RED BLOOD COUNT 3.82 MIL/MM3 (4.00-5.30); RED CELL DISTRIBUTION WIDTH 14.5 % (11.6-17.2); WHITE BLOOD COUNT 12.4 TH/MM3 (4.0-11.0)
[2018-05-01] MEDS ORDERED: SODIUM CHLOR 0.9% 1000 ML INJ 1,000 ML IV ONE (02:15)
[2018-05-01 02:34] LABS: BANDS 12 % (0-6); LYMPHOCYTES 13 % (9-44); MONOCYTES 9 % (0-8); NEUTROPHIL # MANUAL DIFF 9.5 TH/MM3 (1.8-7.7); POLYS (SEG NEUTROPHILS) 65 % (16-70)
[2018-05-01 02:35] LABS: ALBUMIN 2.1 GM/DL (3.4-5.0); ALKALINE PHOSPHATASE 174 U/L (45-117); ALT (GPT) 21 U/L (10-53); AST (GOT) 16 U/L (15-37); BICARBONATE 27.2 MEQ/L (21.0-32.0); BLOOD UREA NITROGEN 11 MG/DL (7-18); CALCIUM 8.2 MG/DL (8.5-10.1); CHLORIDE 101 MEQ/L (98-107); CREATININE 1.06 MG/DL (0.50-1.00); GLOMERULAR FILTRATION RATE 60 ML/MIN (>89); GLUCOSE,RANDOM 167 MG/DL (74-106); SODIUM (NA) 138 MEQ/L (136-145); TOTAL BILIRUBIN ADULT 0.3 MG/DL (0.2-1.0); TOTAL PROTEIN 6.4 GM/DL (6.4-8.2)
[2018-05-01 02:37] LABS: TOXIC GRANULATION 1+ (NORMAL); TOXIC VACUOLATION PRESENT (NONE SEEN)
[2018-05-01] MEDS ORDERED: POTASSIUM CHLORIDE 20 MEQ CONTROLLED RELEASE TAB PO ONE ×3 (02:45→14:30)
[2018-05-01] MEDS ORDERED: CIPROFLOXACIN 400 MG PREMIX 200 ML IV ONE (02:45)
[2018-05-01 03:02] LABS: BACTERIA, URINE OCC /hpf; BILIRUBIN, URINE NEG (NEG); BLOOD, URINE MOD (NEG); GLUCOSE,URINE NEG (NEG); KETONE, URINE NEG (NEG); NITRITE,URINE NEG (NEG); SQUAMOUS EPITHELIAL CELL URINE 1 /hpf (0-5); URINE COLOR YELLOW (YELLW/STRAW); URINE LEUKOCYTE ESTERASE SMALL (NEG)
--- NOTE | 2018-05-01 03:56 | RADRPT ---
EXAM DATE: 05/01/2018 3:37 AM EDT AGE/SEX: 33 years / Female INDICATIONS: Shortness of breath. CLINICAL DATA: This is the patient's initial encounter. Patient reports that signs and symptoms have been present for 1 day and indicates a pain score of 0/10. MEDICAL/SURGICAL HISTORY: None. None. COMPARISON: [facility] [place], CHEST SINGLE AP, 08/03/2015. . FINDINGS: A single AP view of the chest demonstrates the lungs to be symmetrically aerated without evidence of mass, infiltrate or effusion. The cardiomediastinal contours are unremarkable. Osseous structures a re intact. CONCLUSION: No acute cardiopulmonary disease Electronically signed by: Todd Mirza MD 05/01/2018 3:55 AM EDT
[2018-05-01] MEDS ORDERED: LACTULOSE SYRUP 20 GM/30 ML CUP PO PRN (04:00)
[2018-05-01] MEDS ORDERED: ACETAMINOPHEN/HYDROcodone 325 MG/5 MG TAB PO PRN (04:00)
[2018-05-01] MEDS ORDERED: SENNOSIDES 8.6 MG TAB PO PRN (04:00)
[2018-05-01] MEDS ORDERED: MAGNESIUM HYDROXIDE SUSP 30 ML CUP PO PRN (04:00)
[2018-05-01] MEDS ORDERED: BISACODYL 10 MG SUPP RECTAL PRN (04:00)
[2018-05-01] MEDS ORDERED: METOCLOPRAMIDE HCL 10 MG/2 ML VIAL IV PUSH PRN (04:00)
--- NOTE | 2018-05-01 04:09 | HHI.HP ---
[facility] No Primary Care Physician Admission Diagnosis Sepsis, UTI Diagnoses: (1) Sepsis Diagnosis: Principal (2) UTI (urinary tract infection) Diagnosis: Principal (3) BREANA (acute kidney injury) Diagnosis: Principal (4) Hypokalemia Diagnosis: Principal Travel History International Travel<30 Days: No Contact w/Intl Traveler <30 Da: No Traveled to Known Affected Are: No History of Present Illness This is a 33-year-old female with no significant PMH who presented to ER with complaints of generalized malaise and fever of 102 x5 days. Seen in ER on for similar complaints, found to have UTI and d/c'd on Macrobid 100mg bid which she has been taking as prescribed, however no improvement. Today w/ ongoing fever and malaise. On arrival, BP 123/60, HR 111, O2 sat 96% on RA, Temp 99.0. WBC 12.4. Bands 12%. K+ 2.9. Creatinine 1.06, previously 0.76 on 01/27/2018. UA with UTI. CXR no acute findings. S/p Cipro in ER. Review of Systems Except as stated in HPI: all other systems reviewed are Neg ROS: 14 point review of systems otherwise negative. Past Family Social History Past Medical History PMH: None Past Surgical History PAST SURGICAL HISTORY: ORIF Right Ankle Allergies: Coded Allergies: Sulfa (Sulfonamide Antibiotics) (Unverified Allergy, Severe, Anaphylaxis, 04/26/18) penicillin G (Unverified Allergy, Severe, Anaphylaxis, 04/26/18) Family History PAST FAMILY HISTORY: Reviewed. No h/o DM or CAD Social History PAST SOCIAL HISTORY: Occasional alcohol. Positive for tobacco. Negative for drugs. Physical Exam Vital Signs Vital Signs Date Time Temp Pulse Resp B/P (MAP) Pulse Ox O2 Delivery O2 Flow Rate FiO2 05/01/18 00:29 99.0 111 16 123/60 (81) 96 Physical Exam PE: GENERAL: Very pleasant young female in no acute distress. Crutches at bedside HEENT: PERRLA, EOMI. No scleral icterus or conjunctival pallor. No lid lag or facial droop. CARDIOVASCULAR: Regular rate and rhythm. No obvious murmurs to auscultation. No chest tenderness to palpation. RESPIRATORY: No obvious rhonchi or wheezing. Clear to auscultation. Breath sounds equal bilaterally. GASTROINTESTINAL: Abdomen soft, non-tender, nondistended. BS normal. MUSCULOSKELETAL: Extremities without clubbing, cyanosis, or edema. No obvious deformities. Right ankle s/p ORIF, well-healed. NEUROLOGICAL: Awake, alert and oriented x4. No focal neurologic deficits. Moving both upper and lower extremities spontaneously. Laboratory Laboratory Tests Test 05/01/18 01:25 05/01/18 02:15 05/01/18 02:30 White Blood Count 12.4 Red Blood Count 3.82 Hemoglobin 12.1 Hematocrit 34.9 Mean Corpuscular Volume 91.5 Mean Corpuscular Hemoglobin 31.7 Mean Corpuscular Hemoglobin Concent 34.7 Red Cell Distribution Width 14.5 Platelet Count 253 Mean Platelet Volume 8.8 Neutrophils (%) (Auto) 83.5 Lymphocytes (%) (Auto) 8.5 Monocytes (%) (Auto) 6.5 Eosinophils (%) (Auto) 0.2 Basophils (%) (Auto) 1.3 Neutrophils # (Auto) 10.4 Lymphocytes # (Auto) 1.1 Monocytes # (Auto) 0.8 Eosinophils # (Auto) 0.0 Basophils # (Auto) 0.2 CBC Comment AUTO DIFF Differential Total Cells Counted 100 Neutrophils % (Manual) 65 Band Neutrophils % 12 Lymphocytes % 13 Monocytes % 9 Eosinophils % 1 Neutrophils # (Manual) 9.5 Differential Comment FINAL DIFF MANUAL Toxic Granulation 1+ Toxic Vacuolation PRESENT Platelet Estimate NORMAL Platelet Morphology Comment NORMAL Blood Urea Nitrogen 11 Creatinine 1.06 Random Glucose 167 Total Protein 6.4 Albumin 2.1 Calcium Level 8.2 Alkaline Phosphatase 174 Aspartate Amino Transf (AST/SGOT) 16 Alanine Aminotransferase (ALT/SGPT) 21 Total Bilirubin 0.3 Sodium Level 138 Potassium Level 2.9 Chloride Level 101 Carbon Dioxide Level 27.2 Anion Gap 10 Estimat Glomerular Filtration Rate 60 Urine Color YELLOW Urine Turbidity HAZY Urine pH 5.0 Urine Specific [place] 1.010 Urine Protein 30 Urine Glucose (UA) NEG Urine Ketones NEG Urine Occult Blood MOD Urine Nitrite NEG Urine Bilirubin NEG Urine Urobilinogen LESS THAN 2 Urine Leukocyte Esterase SMALL Urine RBC 5 Urine WBC 16 Urine Squamous Epithelial Cells 1 Urine Bacteria OCC Microscopic Urinalysis Comment CULTURE INDICATED Lactic Acid Level 1.0 Date/Time Source Procedure Growth Status 05/01/18 03:00 Blood Peripheral Aerobic Blood Culture Pending Received 05/01/18 03:00 Blood Peripheral Anaerobic Blood Culture Pending Received 05/01/18 02:15 Urine Clean Catch Urine Culture Pending Received Result Diagram: 05/01/1812405/01/18 0125 Caprini VTE Risk Assessment Caprini VTE Risk Assessment: No/Low Risk (score <= 1) Caprini Risk Assessment Model Point Value = 1 Point Value = 2 Point Value = 3 Point Value = 5 Age 41-60 Minor surgery BMI > 25 kg/m2 Swollen legs Varicose veins or History of unexplained or recurrent spontaneous Oral contraceptives or hormone replacement Sepsis (< 1 month) Serious lung disease, including pneumonia (< 1 month) Abnormal pulmonary function Acute myocardial infarction Congestive heart failure (< 1 month) History of inflammatory bowel disease Medical patient at bed rest Age 61-74 Arthroscopic surgery Major open surgery (> 45 min) Laparoscopic surgery (> 45 min) Malignancy Confined to bed (> 72 hours) Immobilizing plaster cast Central venous access Age >= 75 History of VTE Family history of VTE Factor V Leiden Prothrombin [id number] Lupus anticoagulant Anticardiolipin antibodies Elevated serum homocysteine Heparin-induced thrombocytopenia Other congenital or acquired thrombophilia Stroke (< 1 month) Elective arthroplasty Hip, pelvis, or leg fracture Acute spinal cord injury (< 1 month) Prophylaxis Regimen Total Risk Factor Score Risk Level Prophylaxis Regimen 0-1 Low Early ambulation 2 Moderate Order ONE of the following: *Sequential Compression Device (SCD) *Heparin 5000 units SQ BID 3-4 Higher Order ONE of the following medications: *Heparin 5000 units SQ TID *Enoxaparin/Lovenox 40 mg SQ daily (WT < 150 kg, CrCl > 30 mL/min) *Enoxaparin/Lovenox 30 mg SQ daily (WT < 150 kg, CrCl > 10-29 mL/min) *Enoxaparin/Lovenox 30 mg SQ BID (WT < 150 kg, CrCl > 30 mL/min) AND/OR *Sequential Compression Device (SCD) 5 or more Highest Order ONE of the following medications: *Heparin 5000 units SQ TID (Preferred with Epidurals) *Enoxaparin/Lovenox 40 mg SQ daily (WT < 150 kg, CrCl > 30 mL/min) *Enoxaparin/Lovenox 30 mg SQ daily (WT < 150 kg, CrCl > 10-29 mL/min) *Enoxaparin/Lovenox 30 mg SQ BID (WT < 150 kg, CrCl > 30 mL/min) AND *Sequential Compression Device (SCD) Assessment and Plan Problem List: (1) Sepsis ICD Code: A41.9 - Sepsis, unspecified organism Status: Acute (2) UTI (urinary tract infection) ICD Code: N39.0 - Urinary tract infection, site not specified Status: Acute (3) Hypokalemia ICD Code: E87.6 - Hypokalemia (4) BREANA (acute kidney injury) ICD Code: N17.9 - Acute kidney failure, unspecified Assessment and Plan A/P: 1. Sepsis: Temp 102, HR 111, WBC 12 w/ bandemia, Source-UTI. S/p Blood/Urine cultures and IV Cipro, continue IV Abx, follow up cultures. IVF for hydration. 2. UTI: U/a w/ UTI, failed outpatient therapy on Macrobid since 04/26/18, culture results from 04/26/18 reviewed, +E.Coli sensitive to Cipro, will continue w/ Cipro IV bid. IVF 3. BREANA: Creatinine 1.06, previously 0.76 on 01/27/2018, secondary to above, IVF for hydration, monitor I/O, repeat labs in am. 4. Hypokalemia: K+ 2.9, s/p 20mEq in ER, will give additional replacement, recheck labs 5. DVT Prophylaxis: Mechanical contraindication due to ankle injury 6. Social work for d/c planning as needed. 7. Case discussed w/ ER physician at length, labs/records/imaging reviewed by me. Physician Certification 2 Midnight Certification Type: Admission for Inpatient Services Order for Inpatient Services The services are ordered in accordance with Medicare regulations or non- Medicare payer requirements, as applicable. In the case of services not specified as inpatient-only, they are appropriately provided as inpatient services in accordance with the 2-midnight benchmark. Estimated LOS (days): 2 days is the estimated time the patient will need to remain in the hospital, assuming treatment plan goals are met and no additional complications. Post-Hospital Plan: Not yet determined Mazal,Renée MD May 01, 2018 04:09
[2018-05-01] MEDS: SODIUM CHLOR 0.9% 1000 ML INJ 1,000 ML IV SCH ×2 (05:08→20:47)
[2018-05-01] MEDS: ACETAMINOPHEN/HYDROcodone 325 MG/10 MG TAB PO PRN ×3 (05:22→20:45)
[2018-05-01] MEDS: SODIUM CHLORIDE 0.9% FLUSH 10 ML FLUSH IV FLUSH SCH ×2 (09:00→20:47)
[2018-05-01] MEDS: DOCUSATE SODIUM 50 MG/SENNA 8.6 MG TAB PO SCH ×2 (09:00→20:54)
--- NOTE | 2018-05-01 09:34 | HHI.PR ---
Subjective Remarks Follow up for sepsis with pyelonephritis. The patient reports bilateral flank pain today, worse on the right. Denies dysuria but does reports cloudy and foul smelling urine. She is currently on her menstrual cycle and unable to tell if any hematuria. She reports chills and fever Tmax 100.3 this morning. Denies any nausea/vomiting. Denies any other medical complaints at this time. Objective Vitals Vital Signs Date Time Temp Pulse Resp B/P (MAP) Pulse Ox O2 Delivery O2 Flow Rate FiO2 05/01/18 08:31 100.3 70 20 103/60 (74) 98 05/01/18 06:24 16 05/01/18 06:23 93 05/01/18 05:03 98.3 89 16 110/56 (74) 99 05/01/18 00:29 99.0 111 16 123/60 (81) 96 Result Diagram: 05/01/18 0125 05/01/18 0125 Imaging Last Impressions Renal Ultrasound 05/01/18 0000 Signed Impressions: CONCLUSION: Mild right hydronephrosis of uncertain etiology. Left renal collecting system i s mildly distended as well. Chest X-Ray 05/01/18 0000 Signed Impressions: CONCLUSION: No acute cardiopulmonary disease Objective Remarks GENERAL: Well-nourished, well-developed young female patient in [facility]. SKIN: Warm and dry. No rash. HEENT: Normocephalic. Atraumatic. Pupils equal and round. Mucous membranes pink and moist. CARDIOVASCULAR: Regular rate and rhythm. No murmur appreciated. RESPIRATORY: No accessory muscle use. Clear to auscultation. Breath sounds equal bilaterally. GASTROINTESTINAL: Abdomen soft, non-tender, nondistended. Normoactive bowel sounds x4. MUSCULOSKELETAL: No obvious deformities. Extremities without clubbing, cyanosis , or edema. +bilateral CVA tenderness, worse of the right. NEUROLOGICAL: Awake and alert. No obvious cranial nerve deficits. Motor grossly within normal limits. Moving all extremities spontaneously. Normal speech. PSYCHIATRIC: Appropriate mood and affect; insight and judgment normal. Medications and IVs Current Medications Medications (Trade) Dose Ordered Sig/Salvatore Route Start Time Stop Time Status Last Admin Ciprofloxacin/ Dextrose 200 ml @ 200 mls/hr Q12H IV 05/01/18 16:00 Sodium Chloride 1,000 ml @ 100 mls/hr Q10H IV 05/01/18 03:57 05/01/18 05:08 (NS Flush) 2 ml UNSCH PRN IV FLUSH 05/01/18 04:00 (NS Flush) 2 ml BID IV FLUSH 05/01/18 09:00 (Reglan Inj) 5 mg Q6H PRN IV PUSH 05/01/18 04:00 (Tylenol) 650 mg Q6H PRN PO 05/01/18 04:00 ([place] 5-325 Mg) 1 tab Q4H PRN PO 05/01/18 04:00 ([place] 10-325 Mg) 1 tab Q4H PRN PO 05/01/18 04:00 05/01/18 10:27 (Macey-Colace) 1 tab BID PO 05/01/18 09:00 (Milk Of Magnesia Liq) 30 ml Q12H PRN PO 05/01/18 04:00 (Senokot) 17.2 mg Q12H PRN PO 05/01/18 04:00 (Dulcolax Supp) 10 mg DAILY PRN RECTAL 05/01/18 04:00 (Lactulose Liq) 30 ml DAILY PRN PO 05/01/18 04:00 A/P Problem List: (1) Sepsis ICD Code: A41.9 - Sepsis, unspecified organism Status: Acute (2) UTI (urinary tract infection) ICD Code: N39.0 - Urinary tract infection, site not specified Status: Acute (3) Hypokalemia ICD Code: E87.6 - Hypokalemia (4) BREANA (acute kidney injury) ICD Code: N17.9 - Acute kidney failure, unspecified Assessment and Plan 33-year-old female with no significant PMH who presented to ER with complaints of generalized malaise and fever of 102 x5 days. Seen in ER on 04/26/18 for similar complaints, found to have UTI and d/c'd on Macrobid 100mg bid which she has been taking as prescribed, however no improvement. Sepsis With Acute Pyelonephritis: Failed Outpatient Treatment with Macrobid for UTI. Meets Sepsis Criteria with Temp 102, HR 111, WBC 12 w/ bandemia, Source- UTI. EMR reviewed, culture 04/26 +E.Coli pansensitive. -Monitor blood cultures -Monitor urine culture -Continue on IV Cipro 400mg bid (noted allergy to penicillin) -Give IVF hydration, Tylenol prn, [place] prn -Patient with +CVA tenderness, Renal U/S reviewed and showed mild right hydronephrosis of uncertain etiology; left renal collecting system also mildly distended -Check abdomen/pelvis CT -Monitor CBC BREANA: Creatinine 1.06, previously 0.76 on 01/27/2018, secondary to above. -Continue IVF for hydration -Avoid nephrotoxins -Repeat labs show improvement with Cr 0.74 Hypokalemia: K+ 2.9, s/p 20mEq in ER -Repeat K 3.3, will give additional po KCl replacement -Check magnesium -Monitor labs DVT Prophylaxis: Mechanical contraindication due to ankle injury Discharge Planning Discharge pending cultures, abdominal CT, and further clinical improvement, afebrile x24hrs. Devika Perera PA-C May 01, 2018 9:34 am
[2018-05-01 10:10] LABS: HEMATOCRIT 31.3 % (35.0-46.0); HEMOGLOBIN 10.6 GM/DL (11.6-15.3); MEAN CELL VOLUME 92.6 FL (80.0-100.0); MEAN CORPUSCULAR HEMOGLOBIN 31.4 PG (27.0-34.0); MEAN CORPUSCULAR HGB CONC 33.9 % (32.0-36.0); MEAN PLATELET VOLUME 9.2 FL (7.0-11.0); PLATELET COUNT 251 TH/MM3 (150-450); RED BLOOD COUNT 3.38 MIL/MM3 (4.00-5.30); RED CELL DISTRIBUTION WIDTH 14.5 % (11.6-17.2); WHITE BLOOD COUNT 12.8 TH/MM3 (4.0-11.0)
[2018-05-01 10:34] LABS: BICARBONATE 20.8 MEQ/L (21.0-32.0); CALCIUM 7.3 MG/DL (8.5-10.1); CREATININE 0.74 MG/DL (0.50-1.00)
[2018-05-01 10:54] LABS: CALCIUM-PROTEIN CORRECTED 8.5 MG/DL (8.5-10.1)
[2018-05-01 10:58] LABS: BANDS 14 % (0-6); LYMPHOCYTES 5 % (9-44); MONOCYTES 13 % (0-8); NEUTROPHIL # MANUAL DIFF 10.5 TH/MM3 (1.8-7.7); POLYS (SEG NEUTROPHILS) 68 % (16-70)
--- NOTE | 2018-05-01 11:41 | RADRPT ---
EXAM DATE: 05/01/2018 11:10 AM EDT AGE/SEX: 33 years / Female INDICATIONS: Urinary tract infection. Flank pain. CLINICAL DATA: This is the patient's initial encounter. Patient reports that signs and symptoms have been present for 4 - 6 days and indicates a pain score of 10/10. MEDICAL/SURGICAL HISTORY: . Tobacco use. . Right ankle. COMPARISON: No prior exams available for comparison. MEASUREMENTS: Right Kidney:__14.1 x 6.7 x 6.3 cm Left Kidney:__12.0 x 6.8 x 6.7 cm FINDINGS: Right Kidney: There is mild right hydronephrosis. No stone or mass is identified. Left Kidney: There is mild fullness of the collecting system. No gabriela hydronephrosis is present. The re is no stone or mass. Bladder: Within normal limits given the degree of distension. CONCLUSION: Mild right hydronephrosis of uncertain etiology. Left renal collecting system is mildly distended as well. Electronically signed by: Jovi Hamilton MD 05/01/2018 11:40 AM EDT
[2018-05-01] MEDS ORDERED: DIATRIZOATE MEGLUM/DIATRIZOATE SOD 9 ML CUP PO ONE (15:00)
[2018-05-01] MEDS: CIPROFLOXACIN 400 MG PREMIX 200 ML IV SCH (15:50)
[2018-05-01] MEDS ORDERED: MAGNESIUM SULFATE 1 GM PREMIX 100 ML IV ONE (18:15)
[2018-05-01] MEDS ORDERED: IOHEXOL 350 MG/ML 10 ML VIAL (for RAD DIAG) IVCONTRAST ONE (20:01)
--- NOTE | 2018-05-01 20:32 | RADRPT ---
EXAM DATE: 05/01/2018 8:00 PM EDT AGE/SEX: 33 years / Female INDICATIONS: Back pain. Evaluate for hydronephrosis. CLINICAL DATA: This is the patient's initial encounter. Patient reports that signs and symptoms have been present for 1 day and indicates a pain score of 6/10. MEDICAL/SURGICAL HISTORY: . . ORAL CONTRAST: Prescribed oral contrast ingested. RADIATION DOSE: 12.35 CTDI (mGy) COMPARISON: No prior exams available for comparison. TECHNIQUE: Multiple contiguous axial images were obtained through the abdomen and pelvis following b olus infusion of 80 ml Omnipaque 350 (iohexol) nonionic water-soluble contrast as a single exam dos e. Prescribed oral contrast ingested. Using automated exposure control and adjustment of the mA and/ or kV according to patient size, the radiation dose was kept as low as reasonably achievable to obtai n optimal diagnostic quality images. FINDINGS: Small right effusion and trace left pleural fluid with dependent atelectasis in the lungs. There is s ome periportal edema in the liver. There is mild right-sided hydronephrosis. The right kidney is heterogeneous enhancement and there is a masslike area of decreased enhancement in the anterior right kidney measuring by 3.5 cm in diameter . Reportedly there is a history of urinary tract infection and findings most characteristic of hyalin e nephritis. There is also patchy heterogeneous perfusion in the left kidney that may represent an ea rly pyelonephritis as well. The right ureter is minimally dilated proximally but no ureteral or bladd er calculi are seen. Adrenals, spleen and pancreas unremarkable. No significant free fluid. No pelvic masses or adenopathy . No acute bony abnormalities. CONCLUSION: 1. Heterogeneous enhancement of both kidneys, worse on the right with 3.5 cm masslike area in anteri or right kidney. Primary differential diagnosis is mirlande nephritis. There is mild right-sided hydronep hrosis of unknown etiology. 2. Mild periportal edema in the liver. 3. Trace pleural effusions, right greater than left with minimal basilar atelectasis. Electronically signed by: Isra Lopez MD 05/01/2018 8:30 PM EDT
[2018-05-02] VITALS (11 sets, daily range): BP systolic 106–126; BP diastolic 5–65; PULSE 66–112; RESP 16–18; TEMP 98–102.7; O2SAT 93–98
[2018-05-02] MEDS: ACETAMINOPHEN 325 MG TAB PO PRN ×4 (00:05→23:16)
[2018-05-02] MEDS ORDERED: IBUPROFEN 600 MG TAB PO ONE (01:30)
[2018-05-02] MEDS: CIPROFLOXACIN 400 MG PREMIX 200 ML IV SCH ×2 (04:33→15:22)
[2018-05-02] MEDS: SODIUM CHLOR 0.9% 1000 ML INJ 1,000 ML IV SCH ×2 (06:19→19:50)
[2018-05-02 08:24] LABS: AUTOMATED NEUTROPHIL # 7.4 TH/MM3 (1.8-7.7); BASOPHIL # 0.1 TH/MM3 (0-0.2); BASOPHIL % 1.2 % (0.0-2.0); EOSINOPHIL # 0.1 TH/MM3 (0-0.4); HEMATOCRIT 32.1 % (35.0-46.0); HEMOGLOBIN 10.8 GM/DL (11.6-15.3); LYMPH % 19.1 % (9.0-44.0); MEAN CELL VOLUME 93.7 FL (80.0-100.0); MEAN CORPUSCULAR HEMOGLOBIN 31.5 PG (27.0-34.0); MEAN CORPUSCULAR HGB CONC 33.6 % (32.0-36.0); MEAN PLATELET VOLUME 9.2 FL (7.0-11.0); MONO % 7.9 % (0.0-8.0); MONOCYTE # 0.8 TH/MM3 (0-0.9); NEUT % 70.8 % (16.0-70.0); PLATELET COUNT 249 TH/MM3 (150-450); RED BLOOD COUNT 3.42 MIL/MM3 (4.00-5.30); RED CELL DISTRIBUTION WIDTH 14.6 % (11.6-17.2); WHITE BLOOD COUNT 10.4 TH/MM3 (4.0-11.0)
[2018-05-02 08:55] LABS: ALBUMIN 1.8 GM/DL (3.4-5.0); ALKALINE PHOSPHATASE 122 U/L (45-117); ALT (GPT) 17 U/L (10-53); AST (GOT) 13 U/L (15-37); BLOOD UREA NITROGEN 9 MG/DL (7-18); CALCIUM 8.2 MG/DL (8.5-10.1); CHLORIDE 107 MEQ/L (98-107); CREATININE 0.92 MG/DL (0.50-1.00); GLOMERULAR FILTRATION RATE 71 ML/MIN (>89); GLUCOSE,RANDOM 91 MG/DL (74-106); SODIUM (NA) 140 MEQ/L (136-145); TOTAL BILIRUBIN ADULT 0.4 MG/DL (0.2-1.0); TOTAL PROTEIN 5.5 GM/DL (6.4-8.2)
[2018-05-02] MEDS: SODIUM CHLORIDE 0.9% FLUSH 10 ML FLUSH IV FLUSH SCH ×2 (09:00→21:00)
[2018-05-02] MEDS: DOCUSATE SODIUM 50 MG/SENNA 8.6 MG TAB PO SCH ×2 (09:24→21:00)
--- NOTE | 2018-05-02 10:30 | HHI.PR ---
Subjective Remarks Patient seen and examined this morning. Currently afebrile at 98.5, T-max at midnight of 102.3, pulse 72, respiratory rate 18, blood pressure 109/55, pulse ox 98 on room air. Patient reports she is still having some back pain. Denies any nausea or vomiting. Denies feeling febrile at this time. Is still feeling mildly ill. Explained to the patient that it is unlikely for her to be discharged today as we are still awaiting results of her cultures and that she was febrile overnight. Objective Vitals Vital Signs Date Time Temp Pulse Resp B/P (MAP) Pulse Ox O2 Delivery O2 Flow Rate FiO2 05/02/18 07:56 98.5 72 18 109/55 (73) 98 05/02/18 04:00 98.0 67 18 106/51 (69) 97 05/02/18 02:55 98.7 05/02/18 00:58 102.3 05/02/18 00:00 102.7 112 18 112/55 (74) 93 05/01/18 20:00 98.7 92 18 124/57 (79) 96 05/01/18 16:12 98.7 101 16 115/55 (75) 97 05/01/18 12:38 98.2 70 20 128/60 (82) 98 05/01/18 12:26 20 I/O 05/01/18 05/01/18 05/01/18 05/02/18 05/02/18 05/02/18 07:00 15:00 23:00 07:00 15:00 23:00 Intake Total 100 ml 1200 ml Balance 100 ml 1200 ml Intake IV Total 100 ml 1200 ml # Voids 5 Result Diagram: 05/02/18 0713 05/02/18 0713 Imaging Last Impressions Renal Ultrasound 05/01/18 0000 Signed Impressions: CONCLUSION: Mild right hydronephrosis of uncertain etiology. Left renal collecting system i s mildly distended as well. Chest X-Ray 05/01/18 0000 Signed Impressions: CONCLUSION: No acute cardiopulmonary disease Abdomen/Pelvis CT 05/01/18 0000 Signed Impressions: CONCLUSION: 1. Heterogeneous enhancement of both kidneys, worse on the right with 3.5 cm m asslike area in anterior right kidney. Primary differential diagnosis is mirlande n ephritis. There is mild right-sided hydronephrosis of unknown etiology. 2. Mild periportal edema in the liver. 3. Trace pleural effusions, right greater than left with minimal basilar atele ctasis. Objective Remarks GEN: Well-developed, well-nourished patient. No acute distress. CV: Regular rate and rhythm without obvious murmurs LUNGS: Clear to auscultation bilaterally. Normal respiratory effort. No wheezes , rales, rhonchi. GI: Soft, nontender, nondistended. No palpable masses. Bowel sounds WNL. EXT: No edema. NEURO/PSYCH: Afocal. Awake, alert, and oriented x3. Appropriate insight and judgment. Medications and IVs Current Medications Medications (Trade) Dose Ordered Sig/Salvatore Route Start Time Stop Time Status Last Admin Ciprofloxacin/ Dextrose 200 ml @ 200 mls/hr Q12H IV 05/01/18 16:00 05/02/18 04:33 Sodium Chloride 1,000 ml @ 100 mls/hr Q10H IV 05/01/18 03:57 05/02/18 06:19 (NS Flush) 2 ml UNSCH PRN IV FLUSH 05/01/18 04:00 (NS Flush) 2 ml BID IV FLUSH 05/01/18 09:00 05/02/18 09:00 (Reglan Inj) 5 mg Q6H PRN IV PUSH 05/01/18 04:00 (Tylenol) 650 mg Q6H PRN PO 05/01/18 04:00 05/02/18 00:05 ([place] 5-325 Mg) 1 tab Q4H PRN PO 05/01/18 04:00 ([place] 10-325 Mg) 1 tab Q4H PRN PO 05/01/18 04:00 05/01/18 20:45 ([place]acey-Colace) 1 tab BID PO 05/01/18 09:00 05/02/18 09:24 (Milk Of Magnesia Liq) 30 ml Q12H PRN PO 05/01/18 04:00 (Senokot) 17.2 mg Q12H PRN PO 05/01/18 04:00 (Dulcolax Supp) 10 mg DAILY PRN RECTAL 05/01/18 04:00 (Lactulose Liq) 30 ml DAILY PRN PO 05/01/18 04:00 A/P Problem List: (1) Sepsis ICD Code: A41.9 - Sepsis, unspecified organism Status: Acute (2) UTI (urinary tract infection) ICD Code: N39.0 - Urinary tract infection, site not specified Status: Acute (3) Hypokalemia ICD Code: E87.6 - Hypokalemia (4) BREANA (acute kidney injury) ICD Code: N17.9 - Acute kidney failure, unspecified Assessment and Plan 33-year-old female with no significant PMH who presented to ER with complaints of generalized malaise and fever of 102 x5 days. Seen in ER on 04/26/18 for similar complaints, found to have UTI and d/c'd on Macrobid 100mg bid which she has been taking as prescribed, however no improvement. Sepsis With Acute Pyelonephritis: Failed Outpatient Treatment with Macrobid for UTI. EMR reviewed, culture 04/26 +E.Coli pansensitive from urine. -Monitor blood cultures -Monitor urine culture -Continue on IV Cipro 400mg bid (noted allergy to penicillin) -Give IVF hydration, Tylenol prn, [place] prn -Patient with +CVA tenderness, Renal U/S reviewed and showed mild right hydronephrosis of uncertain etiology; left renal collecting system also mildly distended -Check abdomen/pelvis CT -Monitor CBC BREANA: Improving creatinine 0.92, previously 0.76 on 01/27/2018, secondary to above. -Continue IVF for hydration -Avoid nephrotoxins Hypokalemia: Improving potassium is 3.5 at this time -Check magnesium: 1.7 -Monitor labs Discharge Planning Discharge pending medical improvement and cultures Levi Hernandez MD R3 May 02, 2018 10:30
[2018-05-03] VITALS (7 sets, daily range): BP systolic 105–128; BP diastolic 55–70; PULSE 54–95; RESP 18–20; TEMP 98–99; O2SAT 95–98
[2018-05-03] MEDS: CIPROFLOXACIN 400 MG PREMIX 200 ML IV SCH ×2 (04:17→17:06)
[2018-05-03] MEDS: SODIUM CHLOR 0.9% 1000 ML INJ 1,000 ML IV SCH (04:17)
[2018-05-03] MEDS: ACETAMINOPHEN/HYDROcodone 325 MG/10 MG TAB PO PRN ×3 (04:25→21:00)
[2018-05-03] MEDS: SODIUM CHLORIDE 0.9% FLUSH 10 ML FLUSH IV FLUSH SCH ×2 (09:00→20:59)
[2018-05-03 09:53] LABS: HEMATOCRIT 32.6 % (35.0-46.0); HEMOGLOBIN 11.2 GM/DL (11.6-15.3); MEAN CELL VOLUME 92.9 FL (80.0-100.0); MEAN CORPUSCULAR HEMOGLOBIN 31.9 PG (27.0-34.0); MEAN CORPUSCULAR HGB CONC 34.4 % (32.0-36.0); MEAN PLATELET VOLUME 9.3 FL (7.0-11.0); PLATELET COUNT 286 TH/MM3 (150-450); RED BLOOD COUNT 3.51 MIL/MM3 (4.00-5.30); RED CELL DISTRIBUTION WIDTH 14.7 % (11.6-17.2); WHITE BLOOD COUNT 8.5 TH/MM3 (4.0-11.0)
[2018-05-03] MEDS: DOCUSATE SODIUM 50 MG/SENNA 8.6 MG TAB PO SCH ×2 (09:59→20:59)
[2018-05-03 10:13] LABS: BICARBONATE 22.8 MEQ/L (21.0-32.0); CALCIUM 8.3 MG/DL (8.5-10.1); CREATININE 0.83 MG/DL (0.50-1.00)
--- NOTE | 2018-05-03 14:22 | HHI.PR ---
Subjective Remarks Follow-up pyelonephritis. Patient is requesting discharge home. Denies back pain, flank pain. No nausea, vomiting, dysuria. Denies chest pain, dyspnea. She reports nonproductive cough. Objective Vitals Vital Signs Date Time Temp Pulse Resp B/P (MAP) Pulse Ox O2 Delivery O2 Flow Rate FiO2 05/03/18 12:00 98.3 80 20 113/58 (76) 98 05/03/18 08:00 54 05/03/18 08:00 98.0 60 20 105/55 (72) 98 05/03/18 04:00 98.2 72 18 112/70 (84) 95 05/03/18 00:00 99.0 86 18 128/62 (84) 97 05/02/18 20:00 100.1 82 18 126/5 (45) 97 05/02/18 17:00 88 05/02/18 16:00 100.0 85 18 107/65 (79) 97 I/O 05/02/18 05/02/18 05/02/18 05/03/18 05/03/18 05/03/18 06:59 14:59 22:59 06:59 14:59 22:59 Intake Total 1200 ml 1000 ml Balance 1200 ml 1000 ml Intake IV Total 1200 ml 1000 ml # Voids 5 1 5 Result Diagram: 05/03/18 0810 05/03/18 0810 Imaging Last Impressions Renal Ultrasound 05/01/18 0000 Signed Impressions: CONCLUSION: Mild right hydronephrosis of uncertain etiology. Left renal collecting system i s mildly distended as well. Chest X-Ray 05/01/18 0000 Signed Impressions: CONCLUSION: No acute cardiopulmonary disease Abdomen/Pelvis CT 05/01/18 0000 Signed Impressions: CONCLUSION: 1. Heterogeneous enhancement of both kidneys, worse on the right with 3.5 cm m asslike area in anterior right kidney. Primary differential diagnosis is mirlande n ephritis. There is mild right-sided hydronephrosis of unknown etiology. 2. Mild periportal edema in the liver. 3. Trace pleural effusions, right greater than left with minimal basilar atele ctasis. Objective Remarks Examined in the presence of the nurse. General: No acute distress. Heart: Regular rate and rhythm. No murmur. Lungs: Clear to auscultation bilaterally. No wheezes, rales, or rhonchi. Breathing is nonlabored. Abdomen: Soft, nontender, nondistended. Back: Mild CVA tenderness on the right. Extremities: No lower extremity edema. Psych: Alert and oriented. Neuro: Normal speech. No focal deficits noted. Procedures None Urinary Catheter: No Vascular Central Line Catheter: No A/P Problem List: (1) Sepsis ICD Code: A41.9 - Sepsis, unspecified organism Status: Acute (2) UTI (urinary tract infection) ICD Code: N39.0 - Urinary tract infection, site not specified Status: Acute (3) Hypokalemia ICD Code: E87.6 - Hypokalemia (4) BREANA (acute kidney injury) ICD Code: N17.9 - Acute kidney failure, unspecified Assessment and Plan 1. Sepsis secondary to acute pyelonephritis: Failed outpatient treatment. Urine culture is negative. Patient has continued to have low-grade temperature elevation. Leukocytosis has resolved. Blood cultures are negative so far. Continue antibiotics. 2. Hydronephrosis: Consult urology. 3. Acute kidney injury: Improved. 4. Hypokalemia: Improved. The patient is requesting discharge home. I have explained to her my recommendation that she remain in the hospital at least overnight so that she can be evaluated by urology and received more IV antibiotics. I discussed with her that if she decides to leave, it would be AGAINST MEDICAL ADVICE. We discussed the risks of leaving before she completes adequate evaluation and treatment. These risks include worsening infection and possibly . Discharge Planning Possible discharge home tomorrow pending urology evaluation and further clinical improvement. Miquel Soto MD May 03, 2018 14:22
[2018-05-04 00:20] VITALS: PULSE 77
[2018-05-04 01:05] VITALS: BP 115/55; PULSE 76; RESP 18; TEMP 98.8; O2SAT 99
[2018-05-04] MEDS: CIPROFLOXACIN 400 MG PREMIX 200 ML IV SCH (04:31)
[2018-05-04 05:19] VITALS: BP 110/68; PULSE 83; RESP 18; TEMP 99.6; O2SAT 97
[2018-05-04 08:19] VITALS: BP 117/58; PULSE 88; RESP 18; TEMP 99.5; O2SAT 95
[2018-05-04] MEDS: DOCUSATE SODIUM 50 MG/SENNA 8.6 MG TAB PO SCH (09:23)
[2018-05-04] MEDS: SODIUM CHLORIDE 0.9% FLUSH 10 ML FLUSH IV FLUSH SCH (09:24)
[2018-05-04 10:16] VITALS: PULSE 74
[2018-05-04 12:16] VITALS: BP 112/65; PULSE 83; RESP 18; TEMP 99.6; O2SAT 96
[2018-05-04] MEDS ORDERED: CIPR-9 PO (12:23)
--- NOTE | 2018-05-04 12:24 | HHI.DCPOC ---
Discharge Care Plan Diagnosis: (1) Hydronephrosis (2) Acute kidney injury (3) Pyelonephritis (4) UTI (urinary tract infection) Goals to Promote Your Health * To prevent worsening of your condition and complications * To maintain your health at the optimal level Directions to Meet Your Goals Take your medications as prescribed Follow your dietary instruction Follow activity as directed Keep your appointments as scheduled Take your immunizations and boosters as scheduled If your symptoms worsen call your PCP, if no PCP go to Urgent Care Center or Emergency Room Smoking is Dangerous to Your Health. Avoid second hand smoke Call the 24-hour hour crisis hotline for domestic abuse at Miquel Soto MD May 04, 2018 12:24
--- NOTE | 2018-05-04 12:27 | HHI.DS ---
Discharge Summary Admission Date May 01, 2018 at 03:55 Discharge Date: May 04, 2018 Admitting Diagnosis Sepsis, UTI (1) Sepsis ICD Code: A41.9 - Sepsis, unspecified organism Status: Acute (2) UTI (urinary tract infection) ICD Code: N39.0 - Urinary tract infection, site not specified Status: Acute (3) Hypokalemia ICD Code: E87.6 - Hypokalemia (4) BREANA (acute kidney injury) ICD Code: N17.9 - Acute kidney failure, unspecified Procedures None Brief History - From Admission This is a 33-year-old female with no significant PMH who presented to ER with complaints of generalized malaise and fever of 102 x5 days. Seen in ER on for similar complaints, found to have UTI and d/c'd on Macrobid 100mg bid which she has been taking as prescribed, however no improvement. Today w/ ongoing fever and malaise. On arrival, BP 123/60, HR 111, O2 sat 96% on RA, Temp 99.0. WBC 12.4. Bands 12%. K+ 2.9. Creatinine 1.06, previously 0.76 on 01/27/2018. UA with UTI. CXR no acute findings. S/p Cipro in ER. CBC/BMP: 05/03/18 0810 05/03/18 0810 Significant Findings Laboratory Tests Test 05/02/18 07:13 05/03/18 08:10 05/03/18 15:01 Red Blood Count 3.42 MIL/MM3 (4.00-5.30) 3.51 MIL/MM3 (4.00-5.30) Hemoglobin 10.8 GM/DL (11.6-15.3) 11.2 GM/DL (11.6-15.3) Hematocrit 32.1 % (35.0-46.0) 32.6 % (35.0-46.0) Neutrophils (%) (Auto) 70.8 % (16.0-70.0) Total Protein 5.5 GM/DL (6.4-8.2) Albumin 1.8 GM/DL (3.4-5.0) Calcium Level 8.2 MG/DL (8.5-10.1) 8.3 MG/DL (8.5-10.1) Alkaline Phosphatase 122 U/L (45-117) Aspartate Amino Transf (AST/SGOT) 13 U/L (15-37) Estimat Glomerular Filtration Rate 71 ML/MIN (>89) 80 ML/MIN (>89) Chloride Level 108 MEQ/L (98-107) Imaging Last Impressions Renal Ultrasound 05/01/18 0000 Signed Impressions: CONCLUSION: Mild right hydronephrosis of uncertain etiology. Left renal collecting system i s mildly distended as well. Chest X-Ray 05/01/18 0000 Signed Impressions: CONCLUSION: No acute cardiopulmonary disease Abdomen/Pelvis CT 05/01/18 0000 Signed Impressions: CONCLUSION: 1. Heterogeneous enhancement of both kidneys, worse on the right with 3.5 cm m asslike area in anterior right kidney. Primary differential diagnosis is mirlande n ephritis. There is mild right-sided hydronephrosis of unknown etiology. 2. Mild periportal edema in the liver. 3. Trace pleural effusions, right greater than left with minimal basilar atele ctasis. PE at Discharge Examined in the presence of the nurse. General: No acute distress. Heart: Regular rate and rhythm. No murmur. Lungs: Clear to auscultation bilaterally. No wheezes, rales, or rhonchi. Breathing is nonlabored. Abdomen: Soft, nontender, nondistended. Extremities: No lower extremity edema. Psych: Alert and oriented. Neuro: Normal speech. No focal deficits noted. Pt update on day of discharge The patient has no complaints at this time. She states that her flank pain is much better. She wants to go home. Discussed with Dr. Venegas, urology. He has cleared patient for discharge home and recommended continuing antibiotics for treatment of UTI/pyelonephritis. Hospital Course The patient was admitted for treatment of sepsis secondary to UTI/ pyelonephritis. She was continued on antibiotics. Urine culture was negative. Patient continued to improve clinically throughout the hospitalization. She was noted on imaging to have hydronephrosis. Urology was consulted. Patient was cleared for discharge by urology and felt to be stable for discharge home. Pt Condition on Discharge: Stable Discharge Disposition: Discharge Home Discharge Time: <= 30 minutes Discharge Instructions DIET: Follow Instructions for: As Tolerated, No Restrictions Activities you can perform: Regular-No Restrictions Follow up Referrals: PCP Follow-up - 1 Week Urology - 2 Weeks with Tyler Venegas DO Continued Medications: Ciprofloxacin (Cipro) 500 Mg Tab 500 MG PO BID for Infection, #10 TAB 0 Refills (This prescription has been renewed) Ondansetron Odt (Zofran Odt) 4 Mg Tab 4 MG SL Q6HR PRN for Nausea/Vomiting, #20 TAB 0 Refills Vitamin E (Vitamin E) 100 Unit Tab 100 UNITS PO DAILY for Nutritional Supplement, TAB 0 Refills Discontinued Medications: Hydrocodone-Acetaminophen ([place]) 7.5-325 mg Tab 1-2 TAB PO Q6H PRN for PAIN, #90 TAB 0 Refills Ibuprofen (Ibuprofen) 200 Mg Tab 600 MG PO Q6H PRN for PAIN 1 TO 10 AND/OR AGITATION, TAB 0 Refills Nitrofurantoin Monohydrate Macrocrystals (Macrobid) 100 Mg Capsule 100 MG PO BID for Infection for 7 Days, #14 CAP 0 Refills Miquel Soto MD May 04, 2018 12:27
--- NOTE | 2018-05-04 12:41 | MB ---
cc: Tyler Venegas DO DATE: 05/04/2018 HISTORY OF PRESENT ILLNESS: This is a 33-year-old female who presented with complaints of right-sided flank pain and with fever prior to admission for approximately 5 days. She had some nausea, but not any vomiting. She had a UTI recently in the past and had been on Macrobid, but did not improve. She underwent a CT scan on admission, which showed some right-sided inflammation with stranding around the right kidney, concerning for nephritis. PAST MEDICAL HISTORY: Noted for a recent urinary tract infection and she sustained a right ankle fracture in the past. PAST SURGICAL HISTORY: Noted for ORIF of the right ankle. ALLERGIES: SULFA AND PENICILLIN. FAMILY HISTORY: She denies any family history significant for diabetes or heart disease or stone disease. SOCIAL HISTORY: The patient is a known smoker. Denies drug use, but drinks occasional alcohol. REVIEW OF SYSTEMS: Notes right-sided flank pain, abdominal pain, and nausea. Denies chest pain, shortness of breath, hematuria, gait disturbances, bleeding disorders, skin lesions or psychiatric problems. Remaining review of systems were reviewed and were negative. PHYSICAL EXAMINATION: VITAL SIGNS: Today, temperature 99.5, heart rate 88, respiratory rate 18, blood pressure 117/58. GENERAL: She is a well-developed, well-nourished, 33-year-old female in no acute distress. HEENT: Normocephalic, atraumatic. Pupils equal, round, regular and reactive to light. Extraocular movements intact. NECK: Supple. HEART: Regular rate and rhythm. LUNGS: Clear. ABDOMEN: Soft, nontender, nondistended. There is no CVA tenderness today. EXTREMITIES: Show no evidence of cyanosis, clubbing, or edema. NEUROLOGIC: Cranial nerves 2-12 are intact. LABORATORY DATA: White count 8.5, hemoglobin 11.2, hematocrit 32.7, platelet count of 286. Sodium 142, potassium 3.5, chloride 108, CO2 of 22.8, BUN 9, creatinine 0.83, glucose of 88. A urine culture today shows no growth in 48 hours, as well as blood cultures are negative. IMAGING STUDIES: Again, CT scan demonstrated heterogeneous enhancement of both kidneys, worse on the right, with possible nephritis on the right side with ____ right hydronephrosis is noted. No stones were identified. ASSESSMENT AND PLAN: This is a 33-year-old female with right-sided pyelonephritis without obstruction. Recommend continue IV antibiotics for now. Once the patient has been afebrile for 24 hours, she can then go home. She will go home on p.o. antibiotics. Recommend fluoroquinolone as the Macrobid was not effective. It would be helpful to be able to review the prior urine culture results and check sensitivities prior to determining antibiotic. I do not have those results in front of me. Thank you for the consult and allowing me to participate in the care of this patient. DO JOSH Stahl/SAÚL , 12:07 PM , 12:39 PM
== END 2018-05-04 13:18 | disposition home or self-care (01) | DRG 872 ==
LOC: NEPE 00:18 → NEDA 03:55 → NEPHCDU 05:01 → N05B 15:12
PROVIDERS: ADMIT Family Medicine; ATTEND Family Medicine
DX: A41.9 Sepsis, unspecified organism (principal); N17.9 Acute kidney failure, unspecified; N10 Acute pyelonephritis; R04.2 Hemoptysis; E87.6 Hypokalemia; F17.210 Nicotine dependence, cigarettes, uncomplicated; Z88.0 Allergy status to penicillin
CPT/HCPCS: 71045; 74177; 76775; 80048; 80053; 81001; 82948; 83605; 83735; 84155; 84702; 85007; 85025; 85027; 87040; 87086; 96361; 96365; J0744; J3475; J7030; Q9963; Q9967